=== PATIENT | female | born 1950 | race Hispanic/Latino ===

== ENCOUNTER 2018-01-04 09:13 | Day surgery (SDC) | payer BC ==
[2018-01-03 08:57] VITALS: BMI 24.1
[2018-01-04] MEDS ORDERED: Dextrose 50% SYRINGE Inj (50 ml) IV STA (12:45)
[2018-01-04] MEDS ORDERED: Dextrose 50% VIAL Inj (50 ml) IV ONE (12:53)
[2018-01-04] MEDS ORDERED: Propofol 10 mg/ml Inj (20 ML) ONE ×2 (13:33→13:54)
[2018-01-04] MEDS ORDERED: Labetalol 25mg/5ml Syringe ONE (13:46)
[2018-01-04 15:03] VITALS: TEMP 99.1
[2018-01-04 16:02] VITALS: BP 160/63; PULSE 76; RESP 16; O2SAT 96
== END 2018-01-04 15:45 | disposition home or self-care (01) ==
LOC: C.ENDO 09:13
PROVIDERS: ATTEND Internal Medicine Gastroenterology
DX: Z12.11 Encounter for screening for malignant neoplasm of colon (principal); I10 Essential (primary) hypertension; K57.30 Diverticulosis of large intestine without perforation or abscess without bleeding; K64.8 Other hemorrhoids; M19.90 Unspecified osteoarthritis, unspecified site; E11.9 Type 2 diabetes mellitus without complications; Z79.84 Long term (current) use of oral hypoglycemic drugs; Z79.4 Long term (current) use of insulin; M81.0 Age-related osteoporosis without current pathological fracture; K59.00 Constipation, unspecified; D12.2 Benign neoplasm of ascending colon; D12.3 Benign neoplasm of transverse colon
CPT/HCPCS: 45380; 45385; 82948; 88305; J2704; J7060

== ENCOUNTER 2018-04-01 18:46 | Emergency (ER) | payer BC ==
[2018-04-01 18:46] VITALS: BMI 24.1
[2018-04-01 19:03] VITALS: BP 190/75; PULSE 75; RESP 16; TEMP 99; O2SAT 99
--- NOTE | 2018-04-01 20:26 | C.PDOC ---
History Of Present Illness 68 year old female with PMHx of arthritis presents to the ED c/o diffuse joint pain mostly on her right neck, shoulder, hip and knee. Patient now states her right hip pain is radiating towards her right buttock for the past 3 days. Patient reports she has not taken any OTC medications. Patient reports she had similar on her left side for years, she as given meloxicam which she has not taken in years. Patient denies new injury, fall, trauma, LOC, weakness, numbness. Time Seen by Provider: 04/01/18 19:28 Chief Complaint (Nursing): Back Pain History Per: Patient History/Exam Limitations: no limitations Onset/Duration Of Symptoms: Days Current Symptoms Are (Timing): Still Present Quality Of Discomfort: "Pain" Previous Symptoms: Back Pain, Neck Pain Exacerbating Factor(s): Movement Recent travel outside of the [place]: No Additional History Per: Patient Past Medical History Reviewed: Historical Data, Nursing Documentation, Vital Signs Vital Signs: Last Vital Signs Temp 99.0 F 04/01/18 18:58 Pulse 75 04/01/18 18:58 Resp 16 04/01/18 18:58 BP 190/75 H 04/01/18 18:58 Pulse Ox 99 04/01/18 22:58 - Medical History PMH: Fractures (LEFT HIP FX. -TOTAL HIP REPLACEMENT), HTN, Hypercholesterolemia Denies: Chronic Kidney Disease Surgical History: Cholecystectomy Denies: Endoscopy Family History: States: Unknown Family Hx - Social History Hx Alcohol Use: No Hx Substance Use: No - Immunization History Hx Tetanus Toxoid Vaccination: No Hx Influenza Vaccination: No Hx Pneumococcal Vaccination: No Review Of Systems Constitutional: Negative for: Fever, Chills Cardiovascular: Negative for: Chest Pain, Palpitations Respiratory: Negative for: Cough, Shortness of Breath Gastrointestinal: Negative for: Nausea, Vomiting Musculoskeletal: Positive for: Neck Pain, Shoulder Pain, Leg Pain Skin: Negative for: Rash Neurological: Negative for: Weakness, Numbness Physical Exam - Physical Exam Appears: Non-toxic, No Acute Distress Skin: Normal Color, Warm, Dry Head: Atraumatic, Normacephalic Eye(s): bilateral: Normal Inspection Oral Mucosa: Moist Neck: Normal ROM, No Midline Cervical Tenderness, Supple Chest: Symmetrical Cardiovascular: Rhythm Regular Respiratory: Normal Breath Sounds, No Rales, No Rhonchi, No Wheezing Gastrointestinal/Abdominal: Soft, No Tenderness, No Guarding, No Rebound Back: No Vertebral Tenderness, Straight Leg Raising (+ at 40 degress b/l legs) Extremity: Normal ROM, Tenderness (right shoulder, right hip, right knee), Capillary Refill (< 2 seconds), No Swelling Neurological/Psych: Oriented x3, Normal Speech, Normal Motor, Normal Sensation Gait: Steady ED Course And Treatment O2 Sat by Pulse Oximetry: 99 (ON RA) Pulse Ox Interpretation: Normal Progress Note: Plan: - Toradol 30 mg IM. - Prednisone 40 mg PO. Patient remians stable in the ED, after medication were given patient reports improvement to her pain. Patient was advised to follow up with PMD for further evaluation. 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 - Scribe Statement The provider has reviewed the documentation as recorded by the Scribe Lincoln Perry All medical record entries made by the Mishelibgamaliel were at my direction and personally dictated by me. I have reviewed the chart and agree that the record accurately reflects my personal performance of the history, physical exam, medical decision making, and the department course for this patient. I have also personally directed, reviewed, and agree with the discharge instructions and disposition.
== END 2018-04-01 20:42 | disposition home or self-care (01) ==
LOC: C.ER 18:46
DX: M54.2 Cervicalgia (principal)
CPT/HCPCS: 96372; 99283; J1885